=== PATIENT | female | born 1950 | race Caucasian/White ===

== ENCOUNTER → 2023-09-30 10:06 | Outpatient (REF) | payer MEDICARE, OTHER, SELFPAY ==
[2023-09-30 13:55] LABS: Urine Albumin Negative (Neg - Trace); Urine Bilirubin Negative (Negative); Urine Character Clear (Clear); Urine Color Yellow; Urine Glucose Negative (Negative); Urine Ketone Negative (Negative); Urine Leukocyte Trace (Negative); Urine Nitrite Negative (Negative); Urine Occult Blood Negative (Negative); Urine Specific Gravity 1.015 (<1.030); Urine Urobilinogen Negative (Neg - 1+)
[2023-09-30 13:55] LABS: % Basophils 0.9 % (0-2); % Eosinophils 0.2 % (0-6); % Immature Granulocytes 0.2 % (0-0.5); % Lymphocytes 30.3 % (20.5-51.1); % Monocytes 7.6 % (1.7-9.3); % Neutrophils 60.8 % (42.2-75.2); Absolute Lymphocytes 1.4 10^3/uL (1.2-3.4); Absolute Monocytes 0.3 10^3/uL (0.1-0.6); Absolute Neutrophils 2.7 10^3/uL (1.4-6.5); Hematocrit 42.9 % (37.0-47.0); Mean Corp Hgb Conc. 32.6 g/dL (33.0-37.0); Mean Corpuscular Hgb 30.4 pg (27.0-31.0); Mean Corpuscular Volume 93.1 fL (81.0-99.0); Mean Platelet Volume 11.8 fL (7.4-10.4); Nucleated Red Blood Cells % 0 %; Platelet Count 275 10^3/uL (130-400); Red Blood Cell Count 4.61 10^6/uL (4.20-5.40); Red Cell Dist. Width 12.8 % (11.5-14.5); White Blood Cell Count 4.5 10^3/uL (4.8-10.8)
[2023-09-30 14:13] LABS: ALT (SGPT) 24 U/L (0-35); AST (SGOT) 30 U/L (14-36); Albumin 4.8 g/dl (3.5-5.0); Alkaline Phosphatase 58 U/L (38-126); Blood Urea Nitrogen 16 mg/dl (7-17); Calcium 10.3 mg/dl (8.4-10.2); Carbon Dioxide 28 mmol/L (22-30); Chloride 100 mmol/L (98-107); Glucose 102 mg/dl (70-99); HDL Cholesterol 67 mg/dl; LDL Cholesterol, Calculated 79 mg/dl; Potassium 4.8 mmol/L (3.5-5.1); Sodium 137 mmol/L (135-145); Total Bilirubin 0.8 mg/dl (0.2-1.3); Total Cholesterol 168 mg/dl (50-199); Total Protein 7.3 g/dl (6.3-8.2); Triglyceride 113 mg/dl (10-149); Very Low Density Lipoprotein 22 mg/dl (0-30); eGFR > 60.00
[2023-09-30 14:16] LABS: Urine Bacteria Few (Negative); Urine Red Blood Cell 0-2 /HPF (0-2)
[2023-09-30 14:30] LABS: TSH Reflex To Free T4 3.22 uIU/ml (0.47-4.68)
[2023-09-30 14:35] LABS: Glycohemoglobin (HgbA1c) 5.6 % (4.0-5.6)
== END ==
LOC: HWRAD 10:06
PROVIDERS: ATTENDING PHYSICIAN Emergency Medicine
DX: R29.890 Loss of height (principal); Z12.31 Encounter for screening mammogram for malignant neoplasm of breast; M81.0 Age-related osteoporosis without current pathological fracture; I10 Essential (primary) hypertension; E78.00 Pure hypercholesterolemia, unspecified; E66.01 Morbid (severe) obesity due to excess calories; Z79.899 Other long term (current) drug therapy
CPT/HCPCS: 36415; 77063; 77067; 77080; 80053; 80061; 81003; 81015; 83036; 84443; 85025

== ENCOUNTER → 2024-01-24 12:42 | Outpatient (REF) | payer MEDICARE, OTHER, SELFPAY ==
[2024-01-24 16:08] LABS: Calcium 10.2 mg/dl (8.4-10.2)
[2024-01-24 16:28] LABS: % Basophils 0.6 % (0-2); % Eosinophils 0.4 % (0-6); % Immature Granulocytes 0.4 % (0-0.5); % Lymphocytes 29.6 % (20.5-51.1); % Monocytes 8.9 % (1.7-9.3); % Neutrophils 60.1 % (42.2-75.2); Absolute Lymphocytes 1.6 10^3/uL (1.2-3.4); Absolute Monocytes 0.5 10^3/uL (0.1-0.6); Absolute Neutrophils 3.2 10^3/uL (1.4-6.5); Hematocrit 38.8 % (37.0-47.0); Hemoglobin 13.2 g/dL (12.0-16.0); Mean Corpuscular Hgb 31.2 pg (27.0-31.0); Mean Corpuscular Volume 91.7 fL (81.0-99.0); Mean Platelet Volume 11.4 fL (7.4-10.4); Nucleated Red Blood Cells % 0 %; Platelet Count 278 10^3/uL (130-400); Red Blood Cell Count 4.23 10^6/uL (4.20-5.40); Red Cell Dist. Width 13.2 % (11.5-14.5); White Blood Cell Count 5.3 10^3/uL (4.8-10.8)
[2024-01-25 13:22] LABS: Intact PTH 74.3 pg/ml (13.6-85.8)
== END ==
LOC: HWLAB 12:42
PROVIDERS: ATTENDING PHYSICIAN Emergency Medicine
DX: E83.52 Hypercalcemia (principal); R79.89 Other specified abnormal findings of blood chemistry
CPT/HCPCS: 36415; 83970; 85025

== ENCOUNTER → 2024-09-11 11:18 | Outpatient (REF) | payer MEDICARE, OTHER, SELFPAY ==
[2024-09-11 16:21] LABS: Blood Urea Nitrogen 16 mg/dl (7-17); Calcium 10.4 mg/dl (8.4-10.2); Carbon Dioxide 29 mmol/L (22-30); Chloride 101 mmol/L (98-107); Direct Bilirubin 0.4 mg/dl (0.0-0.4); Glucose 91 mg/dl (70-99); Potassium 4.3 mmol/L (3.5-5.1); Sodium 140 mmol/L (135-145); Total Bilirubin 1.2 mg/dl (0.2-1.3); eGFR > 60.00
[2024-09-12 09:40] LABS: Intact PTH 53.9 pg/ml (13.6-85.8)
== END ==
LOC: HWLAB 11:18
PROVIDERS: ATTENDING PHYSICIAN Emergency Medicine
DX: E83.52 Hypercalcemia (principal); R77.9 Abnormality of plasma protein, unspecified; R17 Unspecified jaundice
CPT/HCPCS: 36415; 80048; 82247; 82248; 83970; 84155; 84165

== ENCOUNTER 2024-09-21 09:23 | Inpatient (IN) | payer MEDICARE, OTHER, SELFPAY ==
[2024-09-04 11:26] LABS: Hemoglobin 15.3 g/dL (12.0-16.0); Mean Corpuscular Hgb 31.3 pg (27.0-31.0); Mean Platelet Volume 10.9 fL (7.4-10.4); Platelet Count 288 10^3/uL (130-400); Red Blood Cell Count 4.89 10^6/uL (4.20-5.40); Red Cell Dist. Width 12.2 % (11.5-14.5); White Blood Cell Count 6.2 10^3/uL (4.8-10.8)
[2024-09-04 12:51] LABS: Glycohemoglobin (HgbA1c) 5.3 % (4.0-5.6)
[2024-09-04 13:11] VITALS: BMI 37.2
[2024-09-04 14:08] LABS: ALT (SGPT) 21 U/L (0-35); AST (SGOT) 24 U/L (14-36); Albumin 5.2 g/dl (3.5-5.0); Alkaline Phosphatase 57 U/L (38-126); Blood Urea Nitrogen 17 mg/dl (7-17); Calcium 10.9 mg/dl (8.4-10.2); Carbon Dioxide 26 mmol/L (22-30); Chloride 101 mmol/L (98-107); Estimated Creatinine Clearance 68 ml/min; Glucose 98 mg/dl (70-99); Potassium 4.6 mmol/L (3.5-5.1); Sodium 140 mmol/L (135-145); Total Bilirubin 1.4 mg/dl (0.2-1.3); Total Protein 7.8 g/dl (6.3-8.2); eGFR > 60.00
[2024-09-04 14:58] VITALS: BMI 37.2
[2024-09-21] VITALS (22 sets, daily range): BP systolic 88–177; BP diastolic 50–85; PULSE 76; BMI 37.2
[2024-09-21] MEDS: CELEBREX 200 MG PO (09:56)
[2024-09-21] MEDS: TYLENOL 650 MG PO ×4 (09:57→23:05)
[2024-09-21] MEDS: NORMOSOL-R/PLASMALYTE-A 1000 IV ×2 (09:58→17:26)
--- NOTE | 2024-09-21 15:14 | W.DS.TRANS ---
DC Summary - [employer]
-
Discharge Instructions:
Sleep Apnea Risk Intermediate
Discharge Diagnosis/Procedures L RAINER 09/21/24-*[facility] D/C*
Diet As tolerated
Activity With Walker,With assistance
Driving Restrictions No driving
Bathing Restrictions OK to Shower
Other Services PT
Instructions:
Stand-Alone Forms: Total Hip/Knee Replacement D/C
Changes to Home Medications: Yes
Discharge Medications:
DC Medications w/original date entered in [employer]
lisinopril 10 mg tablet 10 mg PO HS 03/22/22
rosuvastatin 10 mg tablet 10 mg PO HS 03/22/22
[place] [employer] Supplement 2 tab PO HS 09/01/24
cholecalciferol (vitamin D3) 25 mcg (1,000 unit) tablet (Vitamin D3) 25 mcg PO DAILY 09/01/24
metformin 500 mg tablet 500 mg PO DAILY 09/01/24
mupirocin 2 % topical ointment 1 applic intranasal BID #1 tube 09/04/24
Saccharomyces boulardii 250 mg capsule (Florastor) 250 mg PO BID #1 cap 09/21/24
acetaminophen 500 mg tablet (Tylenol Extra Strength) 1,000 mg (2 x 500 mg) PO QID #1 tab 09/21/24
aspirin 325 mg tablet 325 mg PO DAILY blood clot prevention #1 tab 09/21/24
cefadroxil 500 mg capsule 500 mg PO BID infection prevention #14 caps 09/21/24
celecoxib 200 mg capsule 200 mg PO DAILY Anti-inflammatory #14 caps 09/21/24
dexamethasone 4 mg tablet 4 mg PO BID inflammation #6 tabs 09/21/24
docusate sodium 100 mg capsule (Colace) 100 mg PO BID stool softner #1 cap 09/21/24
famotidine 20 mg tablet 20 mg PO HS GI prophylaxis #30 tabs 09/21/24
gabapentin 300 mg capsule 300 mg PO HS sleep/pain #10 caps 09/21/24
magnesium hydroxide 400 mg/5 mL oral suspension (Milk of Magnesia) 30 ml PO HS PRN Constipation #1 mL 09/21/24
ondansetron 4 mg disintegrating tablet 4 mg PO Q6H PRN n/v #20 tabs 09/21/24
oxycodone 5 mg tablet 5 mg PO Q6H PRN 1 tab moderate pain, 2 tabs severe pain #30 tabs 09/21/24
sennosides 8.6 mg tablet (Senokot) 17.2 mg (2 x 8.6 mg) PO BID laxative #2 tabs 09/21/24
Home Medication Changes
mupirocin 2 % topical ointment 1 applic intranasal BID #1 tube 09/04/24
Saccharomyces boulardii 250 mg capsule (Florastor) 250 mg PO BID #1 cap 09/21/24
acetaminophen 500 mg tablet (Tylenol Extra Strength) 1,000 mg (2 x 500 mg) PO QID #1 tab 09/21/24
aspirin 325 mg tablet 325 mg PO DAILY blood clot prevention #1 tab 09/21/24
cefadroxil 500 mg capsule 500 mg PO BID infection prevention #14 caps 09/21/24
celecoxib 200 mg capsule 200 mg PO DAILY Anti-inflammatory #14 caps 09/21/24
dexamethasone 4 mg tablet 4 mg PO BID inflammation #6 tabs 09/21/24
docusate sodium 100 mg capsule (Colace) 100 mg PO BID stool softner #1 cap 09/21/24
famotidine 20 mg tablet 20 mg PO HS GI prophylaxis #30 tabs 09/21/24
gabapentin 300 mg capsule 300 mg PO HS sleep/pain #10 caps 09/21/24
magnesium hydroxide 400 mg/5 mL oral suspension (Milk of Magnesia) 30 ml PO HS PRN Constipation #1 mL 09/21/24
ondansetron 4 mg disintegrating tablet 4 mg PO Q6H PRN n/v #20 tabs 09/21/24
oxycodone 5 mg tablet 5 mg PO Q6H PRN 1 tab moderate pain, 2 tabs severe pain #30 tabs 09/21/24
sennosides 8.6 mg tablet (Senokot) 17.2 mg (2 x 8.6 mg) PO BID laxative #2 tabs 09/21/24
Pending Results: No
--- NOTE | 2024-09-21 15:14 | W.PN.UPDATE ---
Update Note
Progress Note Update
L RAINER 09/21/24-Early D/c
DVT ppx ASA
[2024-09-21] MEDS: DILAUDID 0.25 MG IV (15:50)
[2024-09-21] MEDS: ROXICODONE 5 MG PO (18:08)
[2024-09-21] MEDS: ASPIRIN 325 MG PO (20:00)
[2024-09-21] MEDS: SENOKOT 17.2 MG PO (20:00)
[2024-09-21] MEDS: COLACE 100 MG PO (20:00)
[2024-09-21] MEDS: ANCEF 5 IV (20:00)
--- NOTE | 2024-09-21 20:00 | PTCARENOTE ---
Pt is a 74-y/o F L hip OA with significant pain & instability arrived from PACU at 19:20. PMH: Osteoarthritis, Bilateral knee meniscus tears, HTN. HLD, Venous varicosities, GERD. Chronic low back pain, Overactive bladder. Basal cell carcinoma,
status post Mohs., Mild hypercalcemia, Obesity, BMI 37.2; on Metformin for weight loss. Remote history of tobacco abuse. Pt AOx3, surgical dressing C/D/I, call light in reach. I gave pt a copy of hip precautions, Dr. Coughlin stopped by to emphasize
the importance of the pt following the hip precautions. Pt ambulated to the bathroom with a RW and had an elevated toilet seat, she was able to void and was escorted back to bed, her bed was in a low position, call light in reach, care on going.
[2024-09-21] MEDS: BACTROBAN 2% OINTMENT 1 APPLIC NASAL (20:10)
[2024-09-21] MEDS: CRESTOR 10 MG PO (22:42)
[2024-09-21] MEDS: PEPCID 20 MG PO (22:42)
[2024-09-21] MEDS: NEURONTIN 300 MG PO (22:42)
[2024-09-21] MEDS: ULTRAM 25 MG PO (22:56)
[2024-09-21] MEDS: TORADOL 15 MG IV (22:57)
[2024-09-21] MEDS: DECADRON 4 MG IV (22:59)
[2024-09-22 03:00] VITALS: BP 114/55
[2024-09-22] MEDS: TYLENOL 650 MG PO ×2 (03:00→10:22)
[2024-09-22] MEDS: ANCEF 5 IV (03:00)
[2024-09-22] MEDS: DECADRON 4 MG IV (06:32)
[2024-09-22] MEDS: ULTRAM 25 MG PO (06:32)
[2024-09-22] MEDS: CELEBREX 200 MG PO (06:33)
[2024-09-22] MEDS: TORADOL 15 MG IV (06:33)
[2024-09-22 08:36] VITALS: BP 131/59
--- NOTE | 2024-09-22 09:00 | W.PN.ORTHO ---
Today's Communication / Plan
-
d/c
Assessment
.
Dressing:
Clean, dry and intact.
Plan
.
Surgery / Date: L RAINER 09/21/24-Dr. Coughlin
DVT Prophylaxis: Aspirin
Activity:
Out of bed.
PT/OT
Discharge Plan: Home w/ Outpatient PT
Subjective
.
.:
Patient resting comfortably.
Vital Signs and Labs
.
Vital Signs and Labs:
Lab Results
09/04/24 11:06
09/04/24 11:06
Temp Pulse Resp BP Pulse Ox
98.0 F 63 16 131/59 96
09/22/24 08:36 09/22/24 08:36 09/22/24 08:36 09/22/24 08:36 09/22/24 08:36
Non-invasive Hgb result: 12.6
Physical Exam
-
HEENT: No pallor, cyanosis, or jaundice. Throat clear.
NECK: Supple. No JVD.
RESPIRATORY: Lungs clear to auscultation.
CVS: S1, S2 normal. RRR.� No murmur, rub or gallop.
ABDOMEN: Soft, non-tender. No distension. BS+/normal.
EXTREMITIES: strength equal, no calf pain with palpation
LIQUOR COMMISSIONER: AOx3. No focal deficits. probate clerk grossly intact
[2024-09-22 09:18] VITALS: BP 118/61; PULSE 74; O2SAT 95
[2024-09-22] MEDS: BACTROBAN 2% OINTMENT 1 APPLIC NASAL (10:21)
[2024-09-22] MEDS: ASPIRIN 325 MG PO (10:21)
[2024-09-22] MEDS: COLACE 100 MG PO (10:22)
[2024-09-22] MEDS: SENOKOT 17.2 MG PO (10:22)
[2024-09-22] MEDS: GLUCOPHAGE 500 MG PO (10:22)
[2024-09-22 10:30] VITALS: BP 128/67; PULSE 74; O2SAT 95
[2024-09-22 11:13] VITALS: BP 147/64
== END 2024-09-22 11:50 | disposition home or self-care (01) | DRG 470 ==
LOC: 2 SOUTH 09:23
PROVIDERS: ADMITTING PHYSICIAN Specialist; FAMILY PHYSICIAN Emergency Medicine
PROC: 0SRB0JA Replacement of Left Hip Joint with Synthetic Substitute, Uncemented, Open Approach (ICD-10-PCS; 2024-09-21)
DX: M16.12 Unilateral primary osteoarthritis, left hip (principal); I10 Essential (primary) hypertension; E78.5 Hyperlipidemia, unspecified; K21.9 Gastro-esophageal reflux disease without esophagitis; G89.29 Other chronic pain; M54.50 Low back pain, unspecified; N32.81 Overactive bladder; E66.9 Obesity, unspecified; E83.52 Hypercalcemia; Z68.37 Body mass index [BMI] 37.0-37.9, adult; Z87.891 Personal history of nicotine dependence; Z85.828 Personal history of other malignant neoplasm of skin; Z79.84 Long term (current) use of oral hypoglycemic drugs
CPT/HCPCS: 36415; 73502; 80053; 83036; 85027; 87070; 93005; 97110; 97116; 97162; 97166; 97530; 97535; C1713; C1776